=== PATIENT | male | born 1955 | race Caucasian/White ===

== ENCOUNTER 2018-06-09 12:56 | Emergency (ER) | payer OTHER ==
[~2018-06-09] VITALS: Ht 182.9 cm; Wt 80.0 kg
[2018-06-09] MEDS ORDERED: AMOXICILLIN500 MG PO (13:29)
[2018-06-09] MEDS ORDERED: CORTISPORIN OTI10 M2 AU (13:29)
[2018-06-09] MEDS ORDERED: TORADOL PO (13:29)
[2018-06-09 13:39] VITALS: BP 148/89
== END 2018-06-09 13:39 | disposition home or self-care (01) | DRG 153 ==
LOC: ED 12:56
DX: H66.91 Otitis media, unspecified, right ear (principal); H60.91 Unspecified otitis externa, right ear